=== PATIENT | male | born 1985 | race Caucasian/White ===

== ENCOUNTER → 2022-03-20 11:34 | Outpatient (BNVA) | payer BC, SELFPAY | PROVIDERS: Family Provider Internal Medicine; PCP Internal Medicine; Visit Provider Clinical Nurse Specialist Adult Health | DX: R53.83 Other fatigue (principal); E66.01 Morbid (severe) obesity due to excess calories | CPT/HCPCS: 80053; 80061; 84443; 85025 ==

== ENCOUNTER 2022-05-14 17:00 | Outpatient (CLI) | payer BC, SELFPAY | END 2022-05-14 17:01 | disposition home or self-care (01) | LOC: SLEEP 05-15 11:02 | PROVIDERS: Family Provider Internal Medicine; PCP Internal Medicine; Visit Provider Clinical Nurse Specialist Adult Health | DX: G47.33 Obstructive sleep apnea (adult) (pediatric) (principal) | CPT/HCPCS: G0399 ==

== ENCOUNTER → 2023-02-18 10:01 | Outpatient (BNVA) | payer BC, SELFPAY | PROVIDERS: Family Provider Internal Medicine; PCP Clinical Nurse Specialist Adult Health; Visit Provider Clinical Nurse Specialist Adult Health | DX: I10 Essential (primary) hypertension (principal) | CPT/HCPCS: 80053; 80061; 84443; 85025 ==

== ENCOUNTER 2023-12-19 06:12 | Outpatient (CLI) | payer BC, SELFPAY ==
--- NOTE | 2023-12-19 06:15 | USCV_ITS ---
Riaz Davis Age: 38 Gender: M : 1985 Exam Date: 12/19/2023 06:24 Ordering Phys: Kit Zee NP Technologist: Aly Florentino Exam Location: [facility] [place] Indication: right lower extremity pain PROCEDURES: Venous duplex imaging was performed in only the right lower extremity. The following venous structures were evaluated: common femoral vein, profunda vein, proximal portion of the greater saphenous vein, superficial femoral vein, and the popliteal vein. In addition, the posterior tibial and peroneal trunk were evaluated. Serial compression, augmentation maneuvers, and spectral Doppler flow evaluation were performed. FINDINGS: Normal 2-D Doppler and augmentation and compressibility throughout the lower extremity venous structures. Additional imaging through the proximal calf veins also reveals no thrombus. Limited evaluation of the greater saphenous vein is patent with no thrombus. CONCLUSIONS No DVT right lower extremity. Dr. Britney Wang DO (Electronically Signed) Final Date: 19 December 2023 07:46 S
== END 2023-12-19 06:13 | disposition home or self-care (01) ==
LOC: RAD 06:12
PROVIDERS: Family Provider Internal Medicine; PCP Clinical Nurse Specialist Adult Health; Visit Provider Clinical Nurse Specialist Adult Health
DX: M79.604 Pain in right leg (principal)
CPT/HCPCS: 93971

== ENCOUNTER → 2025-05-04 09:13 | Outpatient (BNVA) | payer BC, SELFPAY | PROVIDERS: Family Provider Internal Medicine; PCP Clinical Nurse Specialist Adult Health; Visit Provider Clinical Nurse Specialist Adult Health | DX: I10 Essential (primary) hypertension (principal) | CPT/HCPCS: 80053; 80061; 85025 ==

== ENCOUNTER → 2025-08-31 10:41 | Outpatient (BNVA) | payer BC, SELFPAY | PROVIDERS: PCP Clinical Nurse Specialist Adult Health; Visit Provider Clinical Nurse Specialist Adult Health | DX: I10 Essential (primary) hypertension (principal); R35.0 Frequency of micturition; F41.1 Generalized anxiety disorder | CPT/HCPCS: 80053; 81000; 82306; 85025 ==

== ENCOUNTER → 2025-09-14 14:20 | Outpatient (BNVA) | payer BC, SELFPAY | PROVIDERS: PCP Clinical Nurse Specialist Adult Health; Visit Provider Podiatrist Foot & Ankle Surgery | DX: G57.63 Lesion of plantar nerve, bilateral lower limbs (principal); Q66.221 Congenital metatarsus adductus, right foot; Q66.222 Congenital metatarsus adductus, left foot | CPT/HCPCS: 73630 ==